=== PATIENT | female | born 1965 | race Caucasian/White ===

== ENCOUNTER 2016-07-13 19:18 | Emergency (ER) | payer BC ==
[2016-07-13 20:12] VITALS: BP 151/91
[2016-07-13 20:31] LABS: Urine Appearance Slightly Cloudy; Urine Bilirubin Negative (NEGATIVE); Urine Blood 50 /ul (NEGATIVE); Urine Color Yellow; Urine Ketone Negative (NEGATIVE); Urine Protein Negative (NEGATIVE); Urine Specific Gravity 1.005 SP.GR. (1.005-1.010)
[2016-07-13 20:32] LABS: Urine Bacteria 1+; Urine Nitrite Negative (NEGATIVE); Urine Urobilinogen Normal (NORMAL)
--- OUTSIDE RECORDS SUMMARY | 2016-07-13 20:44 | XMS REPORT | Continuity of Care Document ---
:1965 Author Organization [facility] ([facility]) Address [address] [place] [address] Phone [phone] Care Team Providers Name Role Phone Kait Sandhu Primary Care Provider [phone] Source Comments This disclosure is being made pursuant to the Care Everywhere program, applicable federal and state laws, and may not contain all informaitonavailable regarding this patient.[facility] ([facility]) Active Allergies and Adverse Reactions Allergen Noted Date Severity Reactions Comments Penicillins 09/12/2014 Rash Current Medications Prescription Sig. Disp. Refills Start Date End Date Status CALCIUM CARBONATE/VITAMIN Take by mouth Active D3 (VITAMIN D-3 PO) daily aspirin 81 mg chewable Take 2 tablets 28 tablet 0 12/19/2014 Active tablet (162 mg total) by mouth daily metFORMIN 500 mg tablet Take 1,000 mg Active by mouth 2 times daily. biotin (MERIBIN) 5 mg Take 5 mg by Active capsule mouth daily atorvastatin 20 mg tablet 20 mg daily. 06/06/2015 Active rOPINIRole 0.5 mg tablet 0.5 mg daily. 06/14/2015 Active lisinopril 40 mg tablet 40 mg daily. 04/22/2015 Active hydrochlorothiazide 12.5 12.5 mg daily. 04/22/2015 Active mg tablet amLODIPine 5 mg tablet Take 5 mg by Active mouth daily. cetirizine 10 mg tablet Take 10 mg by Active mouth daily. DULoxetine 30 mg XR Take 30 mg by Active capsule mouth daily. sennosides 8.6 mg tablet Take 1 tablet Active by mouth 2 times daily. Active Problems Patient Care Coordination Note GOALS OF CARE AND TREATMENT PREFERENCES Patients Communication Style/Preference per patient and per family: open/ direct/straightforward Diagnosis: Septic shock secondary to unknown cause Prognosis: Poor Goal(s) of Care: determine what is wrong, cure Is the patient an inpatient? Yes. How did the team arrive at the current code status? Family discussion Code status is: Full code Additional remarks: None. Patient able to make own decisions?: No, in the setting of encephalopathy that may be reversible Decision-maker: Next of kin: Children Patient's Goals of Care and communication style preference were communicated to attending staff. 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 Anakinra 200 mg po BID 09/24/14 - . Anakinra 100 BID on 10/04-09/26/14. Anakinra switched to 100 mg once daily on 10/07/14 Dexamethasone 10 mg/m2 (20 mg IV daily): 09/14/14 - 10/05/14. switched to oral prednisone 60 mg taper starting 10/05/14 (as of 12/19/14, is off dexamethasone ) Tocilizumab 8 mg/kg iv x1 (09/28/14) Hyponatremia 10/04/2014 Stroke 09/22/2014 Essential hypertension 09/21/2014 Severe protein-calorie malnutrition 09/21/2014 Diabetes mellitus, type 2 09/18/2014 Hypertriglyceridemia 09/18/2014 Acute hepatitis secondary to sepsis 09/13/2014 Resolved Problems Problem Noted Date Resolved Date Acute hypernatremia 09/24/2014 10/04/2014 Acute renal failure 09/21/2014 09/24/2014 Hemoptysis 09/18/2014 09/22/2014 ATN (acute tubular necrosis) 09/18/2014 10/04/2014 Coagulopathy 09/18/2014 09/21/2014 Seizure 09/18/2014 09/22/2014 Acute liver failure 09/18/2014 10/04/2014 Malnutrition of mild degree 09/18/2014 09/22/2014 Severe sepsis(995.92) 09/13/2014 10/04/2014 Septic shock(785.52) 09/13/2014 09/20/2014 Elevated partial thromboplastin time (PTT) 09/13/2014 09/21/2014 Acute kidney injury 09/13/2014 09/22/2014 Encephalopathy in sepsis 09/13/2014 10/04/2014 Lactic acidosis 09/13/2014 09/24/2014 Acute respiratory failure with hypoxia 09/13/2014 09/22/2014 Pancytopenia 09/13/2014 10/04/2014 Ovarian cyst, 12 X 12 cm 09/13/2014 01/17/2016 MODS (multiple organ dysfunction syndrome) 09/13/2014 10/04/2014 Cardiac dysrhythmia 09/13/2014 10/04/2014 Immunizations Name Dates Previously Given Next Due Influenza, unspecified 03/24/2015 Social History Tobacco Use Types Packs/Day Years Used Date Never Smoker Smokeless Tobacco: Never Used Tobacco Cessation:Counseling Given: Yes Comments: Alcohol Use Drinks/Week oz/Week Comments Yes 2 Cans of beer Last Filed Vital Signs Vital Sign Reading Time Taken Blood Pressure 126/82 01/16/2016 3:55 PM CDT Pulse 89 01/16/2016 3:55 PM CDT Temperature 37.5 C (99.5 F) 10/15/2015 12:05 PM CDT Respiratory Rate 18 10/15/2015 12:05 PM CDT Height 1.651 m (5' 5") 10/15/2015 12:05 PM CDT Weight 90.5 kg (199 lb 8.3 oz) 01/16/2016 3:55 PM CDT Body Mass Index 33.2 01/16/2016 3:55 PM CDT Oxygen Saturation 96% 10/15/2015 12:05 PM CDT Plan of Care Health Maintenance Due Date Last Done Comments Hepatitis B Vaccine (1 of 3 - 1965 Primary Series) Tdap Vaccine 10/04/1974 DIABETIC: Hemoglobin A1C 10/04/1981 DIABETIC: Microalbumin 10/04/1981 MMR Vaccine 10/04/1981 Td Vaccine 10/04/1981 Pneumococcal Vaccine (1 of 3 10/04/1982 - PCV13) Cervical Cancer Screening 10/04/1993 Mammogram 2003 DIABETIC: Foot Exam 09/18/2014 DIABETIC: Retinal Eye Exam 09/18/2014 DIABETIC: Cholesterol 09/23/2015 09/22/2014 Diabetic: Hdl 09/23/2015 09/22/2014 Diabetic: Ldl 09/23/2015 09/22/2014 DIABETIC: Triglycerides 09/23/2015 09/22/2014, Additional history exists 09/17/2014, 09/15/2014 Influenza Vaccine: Seasonal 11/19/2015 03/24/2015 (#1) Colonoscopy 08/27/2025 08/28/2015 HCV Screening Completed 09/14/2014, 09/12/2014 Results from Last 3 Months Not on file
[2016-07-13] MEDS ORDERED: SULFAMETHOXAZOLE/TRIMETHOPRIM 1 TAB TABLET PO ONE (21:04)
[2016-07-13] MEDS ORDERED: SULFAMETHOXAZOLE/TRIMETHOPRIM 1 TAB TABLET ONE (21:09)
--- NOTE | 2016-07-13 21:14 | ERNOTE ---
ER Female HPI Date of Service: 07/13/16 Stated Complaint: BLOOD IN URINE Presenting Symptoms: pelvic pain, dysuria Time Seen by Provider: 07/13/16 20:20 Source: patient Exam Limitations: no limitations Immunizations: IMMUNIZATION HX Immunizations Up to Date Yes History of Influenza Vaccine No Hx Pneumococcal Vaccination No Allergies/Adverse Reactions: Allergies penicillin G Allergy (Verified 01/23/16 17:58) Home Medications: HOME MEDICATIONS Aspirin [Aspirin Chewable] 81 mg PO DAILY 12/27/14 [Last Taken Unknown] Sennosides/Psyllium Husk [Senna Prompt Capsule] 1 each PO BID 12/27/14 [Last Taken Unknown] metFORMIN HCL [Glumetza] 500 mg PO DAILY 12/27/14 [Last Taken Unknown] Biotin 8 mg PO DAILY 05/07/15 [Last Taken Unknown] Cholecalciferol (Vitamin D3) [Vitamin D3] 2,000 unit PO DAILY 05/07/15 [Last Taken Unknown] Ibuprofen [Motrin] 600 mg PO Q6H PRN #60 tab 05/25/15 [Last Taken Unknown] Atorvastatin Calcium 20 mg PO DAILY 01/01/16 [Last Taken Unknown] Cetirizine HCl [Zyrtec] 10 mg PO HS 01/01/16 [Last Taken Unknown] Ondansetron [Zofran Odt] 8 mg PO Q8H PRN #12 tab 01/01/16 [Last Taken Unknown] amLODIPine BESYLATE [Norvasc] 5 mg PO DAILY 01/01/16 [Last Taken Unknown] rOPINIRole HCL [Requip] 1 mg PO HS 01/01/16 [Last Taken Unknown] Promethazine HCl [Phenergan] 25 mg PO QID PRN #30 tab 01/23/16 [Last Taken Unknown] Citalopram Hydrobromide [Citalopram HBr] 10 mg PO DAILY 07/13/16 [Last Taken Unknown] Sulfamethoxazole/Trimethoprim [Bactrim Ds] 1 tab PO BID #10 tab 07/13/16 [Last Taken Unknown] - History of Present Illness Narrative: This 50-year-old female presents to the emergency room with increased urinary frequency. Patient also complains of dysuria, bloody urine, and small blood clots in her urine. Patient states she feels like she has a UTI. Date (Duration): 07/13/16 Timing: Present: getting worse Quality: Present: mild, cramping Onset Location: Present: RLQ, LLQ, suprapubic, groin. Absent: right flank, left flank Radiation: Present: none Activities at Onset: Present: none Prior Abdominal Problems: Present: none Sexual Cut Off History: Present: not active Modifying Factors - (Improves): Present: urinating Modifying Factors - (Worsens): Present: palpation Associated Symptoms: Present: abdominal pain, dysuria, urinary frequency, polyuria. Absent: fever/chills, diaphoresis, nausea, vomiting, loss of bladder control, low back pain Review of Systems - Review of Systems Constitutional: Present: no symptoms reported EYE: Present: no symptoms reported ENT: Present: no symptoms reported Respiratory: Present: no symptoms reported Cardiology: Present: no symptoms reported Gastrointestinal/Abdominal: Present: no symptoms reported Genitourinary: Present: See HPI, frequency, pain, dysuria, hematuria Musculoskeletal: Present: no symptoms reported Skin: Present: no symptoms reported Neurological: Present: no symptoms reported Endocrine: Present: no symptoms reported Hematologic/Lymphatic: Present: no symptoms reported Psych: Present: no symptoms reported - Patient's Past Medical History Patient History - Medical: Diabetes Type 2, Depression, Other Patient History - Cardiac/Respiratory: CVA/Stroke Patient History - Cancer: No Hx of Cancer Patient History - Surgical Procedures: Appendectomy, Colonoscopy, D & C, Hysterectomy, T & A, Other Patient History - Other: None - Family History Mother Family History - Medical: Family History - Cardiac/Respiratory: CVA/Stroke Family History - Cancer: No pertinent family hx Father Family History - Medical: No pertinent hx Family History - Cardiac/Respiratory: Myocardial Infarction - Social History Living Situations: spouse Abuse History: No History of abuse Psych History: No pertinent hx Smoking Status: Never smoker Alcohol Use: occasionally Drug Use: none - Immunizations Immunizations Up to Date: Yes Hx Pneumococcal Vaccination: No History of Influenza Vaccine: No Physical Exam - Physical Exam General Appearance: Present: wd/wn, alert, no apparent distress Eye Exam: Normal inspection: bilateral Ears, Nose, Throat: Present: normal ENT inspection Neck: Present: normal inspection Respiratory: Present: no respiratory distress Cardiovascular/Chest: Present: regular rate, rhythm Gastrointestinal/Abdominal: Present: normal bowel sounds, tenderness Back Exam: Present: normal inspection, no CVA tenderness Extremity Exam: Present: normal inspection Neurological Exam: Present: alert, oriented, normal mood/affect Skin Exam: Present: normal color Lymphatic Exam: Present: no adenopathy ED Progress - Results and Orders Patient's Lab Results:: I have reviewed the patient's lab results. Results and Orders: positive for UTI - Vital Signs Patient's Vital Signs:: I have reviewed the patient's vital signs. Vital Signs: Vital Signs 07/13/16 20:05 Temperature 36.8 C Pulse Rate 77 Respiratory 14 Rate Blood Pressure 151/91 O2 Sat by Pulse 100 Oximetry - Progress/Reassessment Chief Complaint: Genitourinary Problem Progress:: Improved Departure Clinical Impression: UTI (urinary tract infection) Qualifiers: Urinary tract infection type: site unspecified Hematuria presence: with hematuria Qualified Code(s): N39.0 - Urinary tract infection, site not specified ; R31.9 - Hematuria, unspecified - Departure Disposition: Home Follow Up Needed Condition: Stable Instructions: Urine Culture and Sensitivity Testing, Urinary Tract Infection, Adult, [id number] Additional Instructions: Tonight you need to drink plenty of fluids and rest. Return to emergency room if pain does not improve by morning or if pain gets worse overnight. Start antibiotics tomorrow. Your first dose of antibiotic was given tonight in the emergency room. she may take [id number] pain medications as needed. Follow Up with your primary care physician in a few days. Referrals: Kait Sandhu MD [Primary Care Provider] - Prescriptions: Sulfamethoxazole/Trimethoprim [Bactrim Ds] 1 tab PO BID #10 tab
== END 2016-07-13 21:34 | disposition home or self-care (01) ==
LOC: ER 19:18
DX: N39.0 Urinary tract infection, site not specified (principal); R31.9 Hematuria, unspecified; E11.9 Type 2 diabetes mellitus without complications; Z86.73 Personal history of transient ischemic attack (TIA), and cerebral infarction without residual deficits

== ENCOUNTER 2017-01-13 11:34 | Emergency (ER) | payer BC ==
[2017-01-13 12:08] LABS: Hematocrit 40.9 % (37.0-47.0); Hemoglobin 14.3 gm/dL (12.5-16.0); Mean Cell Volume 87.2 fl (78-100); Mean Corpuscular Hemoglobin 30.5 pg (27-31); Mean Platelet Volume 9.5 fl (6.0-9.5); Neutrophil # 4.8 K/mm3 (1.3-6.0); Neutrophil % 67.9 % (42-75.0); Platelet Count 344 K/mm3 (150-450); Red Blood Count 4.69 M/mm3 (4.2-5.4); Red Cell Distribution Width 12.7 % (11.5-14.0); White Blood Count 7.1 K/mm3 (4.0-10.5)
[2017-01-13] MEDS ORDERED: NORMAL SALINE 1,000 ML IV ONE (12:10)
[2017-01-13 12:18] LABS: Albumin * 3.9 gm/dl (3.4-5.0); BUN/Creatinine Ratio 18.2 (9.0-21.6); Bilirubin, Total 0.3 mg/dL (0.0-1.1); Ca. Corrected For Albumin 9.3 mg/dL (8.4-10.2); Calcium * 9.5 mg/dL (7.9-10.9); Carbon Dioxide 29.9 mmol/L (24-32.6); Potassium 3.9 mmol/L (3.4-4.6); Total Protein 7.4 gm/dL (6.2-8.2)
[2017-01-13 12:26] LABS: Urine Bilirubin Negative (NEGATIVE); Urine Blood Negative /ul (NEGATIVE); Urine Ketone Negative (NEGATIVE); Urine Nitrite Negative (NEGATIVE); Urine Protein Negative (NEGATIVE); Urine Specific Gravity 1.025 SP.GR. (1.005-1.010); Urine Urobilinogen Normal (NORMAL); Urine pH 5.5 pH (5.0-7.0)
[2017-01-13 12:39] LABS: Urine Appearance Clear; Urine Color Yellow; Urine RBC None Seen /hpf (0-5); Urine WBC None Seen /hpf (0-5)
[2017-01-13 12:40] LABS: Urine Bacteria 1+
[2017-01-13 14:25] VITALS: BP 120/84
--- NOTE | 2017-01-13 14:32 | ERNOTE ---
Dizziness ER Record Date of Service: 01/13/17 Presenting Symptoms: dizziness, other - cough Time Seen by Provider: 01/13/17 11:45 Source: patient Exam Limitations: no limitations Immunizations: IMMUNIZATION HX Immunizations Up to Date Yes History of Influenza Vaccine No Hx Pneumococcal Vaccination No Allergies/Adverse Reactions: Allergies Allergy/AdvReac Type Severity Reaction Status Date / Time penicillin G Allergy Verified 01/13/17 11:42 Home Medications: HOME MEDICATIONS Aspirin [Aspirin Chewable] 81 mg PO DAILY 12/27/14 [Last Taken Unknown] Sennosides/Psyllium Husk [Senna Prompt Capsule] 1 each PO BID 12/27/14 [Last Taken Unknown] metFORMIN HCL [Glumetza] 500 mg PO DAILY 12/27/14 [Last Taken Unknown] Biotin 8 mg PO DAILY 05/07/15 [Last Taken Unknown] Cholecalciferol (Vitamin D3) [Vitamin D3] 2,000 unit PO DAILY 05/07/15 [Last Taken Unknown] Atorvastatin Calcium 20 mg PO DAILY 01/01/16 [Last Taken Unknown] Cetirizine HCl [Zyrtec] 10 mg PO HS 01/01/16 [Last Taken Unknown] rOPINIRole HCL [Requip] 1 mg PO HS 01/01/16 [Last Taken Unknown] Citalopram Hydrobromide [Citalopram HBr] 10 mg PO DAILY 07/13/16 [Last Taken Unknown] Albuterol Sulfate [Proair Hfa] 2 puff IH Q4H PRN #1 inhaler 01/13/17 [Last Taken Unknown] Chlorthalidone [Hygroton] 12.5 mg PO DAILY 01/13/17 [Last Taken Unknown] Doxycycline Monohydrate [Monodox] 100 mg PO BID #20 cap 01/13/17 [Last Taken Unknown] Lisinopril [Zestril] 30 mg PO DAILY 01/13/17 [Last Taken Unknown] Spironolactone [Aldactone] 12.5 mg PO DAILY 01/13/17 [Last Taken Unknown] - History of Present Illness Narrative: Patient presents to the ED from Dr Sandhu's office. She relates she has developed URI Sx over the last several days and this has progressed to cough. no fever. She relates she is very dizzy with standing. Dr Sandhu saw her and sent her to the ED for IV fluids. She denies CP or SOB. Nausea. No abdominal pain. She relates she has had this before in the past with dehydration. She feels lightheaded and dizzy with standing. No syncope. No focal N/T/W. Has not taken any medications for this. Timing and Duration: gradual onset Associated Symptoms: Absent: hearing loss, headache, weakness, numbness Sense of movement: Absent: spinning Usually:: Present: walks w/o assistance Modifying Factors - (Improves): Reports: other - rest Modifying Factors - (Worsens): Reports: standing position Prior Treament: Reports: recently seen Review of Systems - Review of Systems Constitutional: Absent: fever ENT: Present: nose congestion Respiratory: Present: cough Cardiology: Absent: chest pain Gastrointestinal/Abdominal: Absent: abdominal pain Genitourinary: Absent: dysuria Neurological: Absent: weakness - Patient's Past Medical History Patient History - Medical: Diabetes Type 2, Depression, Other Patient History - Cardiac/Respiratory: CVA/Stroke Patient History - Cancer: No Hx of Cancer Patient History - Surgical Procedures: Appendectomy, Colonoscopy, D & C, Hysterectomy, T & A, Other Patient History - Other: None LMP (females 10-50): Menopausal - Family History Mother Family History - Medical: Family History - Cardiac/Respiratory: CVA/Stroke Family History - Cancer: No pertinent family hx Father Family History - Medical: No pertinent hx Family History - Cardiac/Respiratory: Myocardial Infarction - Social History Living Situations: home Abuse History: No History of abuse Psych History: No pertinent hx Smoking Status: Never smoker Alcohol Use: occasionally Drug Use: none - Immunizations Immunizations Up to Date: Yes Hx Pneumococcal Vaccination: No History of Influenza Vaccine: No Physical Exam - Physical Exam General Appearance: Present: alert, no apparent distress, other - frequent cough. No distress. Speaks in full sentences Head Exam: Present: normal inspection, no evidence of injury Eye Exam: Normal inspection: bilateral, PERRL: bilateral Ears, Nose, Throat: Present: normal ENT inspection, nasal congestion. Absent: pharyngeal erythema, dry mucous membranes Neck: Present: normal inspection Respiratory: Present: no respiratory distress, normal breath sounds, no accessory muscle use, lungs clear Cardiovascular/Chest: Present: regular rate, rhythm, normal peripheral pulses Gastrointestinal/Abdominal: Present: normal bowel sounds, nontender, soft. Absent: tenderness Back Exam: Absent: CVA tenderness (R), CVA tenderness (L) Extremity Exam: Present: normal inspection Neurological Exam: Present: alert, normal mood/affect, no motor/sensory deficits , departure clerk II-XII nml as tested. Absent: motor weakness Skin Exam: Present: normal color, warm/dry ED Progress - Results and Orders Patient's Lab Results:: I have reviewed the patient's lab results. - Vital Signs Patient's Vital Signs:: I have reviewed the patient's vital signs. Vital Signs: Vital Signs 01/13/17 01/13/17 01/13/17 11:38 11:52 11:57 Temperature 36.4 C L Pulse Rate 81 87 91 Respiratory 16 16 Rate Blood Pressure 110/60 139/88 O2 Sat by Pulse 100 99 Oximetry 01/13/17 01/13/17 01/13/17 12:19 12:40 12:57 Temperature Pulse Rate 75 85 75 Respiratory 12 12 12 Rate Blood Pressure 124/81 105/70 119/78 O2 Sat by Pulse 97 98 99 Oximetry 01/13/17 01/13/17 01/13/17 13:19 13:36 14:05 Temperature Pulse Rate 73 75 78 Respiratory 12 12 12 Rate Blood Pressure 109/73 116/70 118/72 O2 Sat by Pulse 98 98 98 Oximetry - X-Ray X-Ray #1 X-Ray: chest Interpretation: Interp. by me X-ray Comments: I reviewed CXR radiology report - Progress/Reassessment Chief Complaint: Dizziness Progress Note-Subjective: 01/13/17 14:43 She felt much improved after IV fluids. Dr Sanhdu reviewed her labs and recommended antibiotics and outpatient management. Pt agreeable. Possible pneumonia. No other clear acute life threat. I discussed warning signs and reasons to return as well as the need for close f/u. 01/13/17 14:48 No other acute life threats identified. Departure Clinical Impression: Dizziness, Pneumonia - Departure Disposition: Home self-care Condition: Stable Instructions: Cough, Adult, [id number] Additional Instructions: Rest. Fluids. Antibiotics. Inhaler for cough. Follow-up with Dr Sandhu within 3 days for a re-check. Return for fever, trouble breathing or if your condition worsens or changes in any way. Referrals: Kait Sandhu MD [Primary Care Provider] - Prescriptions: Albuterol Sulfate [Proair Hfa] 2 puff IH Q4H PRN #1 inhaler PRN Reason: Cough Doxycycline Monohydrate [Monodox] 100 mg PO BID #20 cap
== END 2017-01-13 14:52 | disposition home or self-care (01) ==
LOC: ER 11:34
DX: J18.9 Pneumonia, unspecified organism (principal); R42 Dizziness and giddiness; E11.9 Type 2 diabetes mellitus without complications; I63.9 Cerebral infarction, unspecified

== ENCOUNTER 2017-02-16 08:47 | Emergency (ER) | payer BC ==
--- NOTE | 2017-02-16 09:44 | ERNOTE ---
Upper Extremity HPI - General Extremities Pain Location: hand: left Time Seen by Provider: 02/16/17 09:38 Source: patient Exam Limitations: no limitations - Immun/Allergies/Home Medications Immunizations: IMMUNIZATION HX Immunizations Up to Date Yes History of Influenza Vaccine No Hx Pneumococcal Vaccination No Allergies/Adverse Reactions: Allergies Allergy/AdvReac Type Severity Reaction Status Date / Time penicillin G Allergy Verified 02/16/17 08:55 Home Medications: HOME MEDICATIONS Aspirin [Aspirin Chewable] 81 mg PO DAILY 12/27/14 [Last Taken Unknown] Sennosides/Psyllium Husk [Senna Prompt Capsule] 1 each PO BID 12/27/14 [Last Taken Unknown] metFORMIN HCL [Glumetza] 500 mg PO DAILY 12/27/14 [Last Taken Unknown] Biotin 8 mg PO DAILY 05/07/15 [Last Taken Unknown] Cholecalciferol (Vitamin D3) [Vitamin D3] 2,000 unit PO DAILY 05/07/15 [Last Taken Unknown] Atorvastatin Calcium 20 mg PO DAILY 01/01/16 [Last Taken Unknown] Cetirizine HCl [Zyrtec] 10 mg PO HS 01/01/16 [Last Taken Unknown] rOPINIRole HCL [Requip] 1 mg PO HS 01/01/16 [Last Taken Unknown] Citalopram Hydrobromide [Citalopram HBr] 10 mg PO DAILY 07/13/16 [Last Taken Unknown] Albuterol Sulfate [Proair Hfa] 2 puff IH Q4H PRN #1 inhaler 01/13/17 [Last Taken Unknown] Chlorthalidone [Hygroton] 12.5 mg PO DAILY 01/13/17 [Last Taken Unknown] Lisinopril [Zestril] 30 mg PO DAILY 01/13/17 [Last Taken Unknown] Spironolactone [Aldactone] 12.5 mg PO DAILY 01/13/17 [Last Taken Unknown] - History of Present Illness Narrative: Yesterday patient tripped, fell and dorsiflexed the fingers on her left hand. She denies any other injuries, wants to make sure it is not broken Date (Duration): 02/15/17 Time (Timing): 08:00 Occurred: yesterday Location of Incident: home Method of Injury: Reports: fell Reason for Fall: Reports: lost balance Loss of Consciousness: Reports: no loss of consciousness Modifying Factors - (Improves): Reports: immobilization Modifying Factors - (Worsens): Reports: movement Associated Symptoms: Denies: tingling, loss of power (rt arm) Other Injuries: Reports: none Review of Systems - Review of Systems Constitutional: Absent: recent illness, fever ENT: Absent: sore throat Respiratory: Absent: shortness of breath Cardiology: Absent: chest pain Gastrointestinal/Abdominal: Absent: nausea, vomiting, abdominal pain Genitourinary: Present: no symptoms reported Musculoskeletal: Present: See HPI Skin: Absent: rash Neurological: Absent: weakness, numbness - Patient's Past Medical History Patient History - Medical: Diabetes Type 2, Depression, Other Patient History - Cardiac/Respiratory: CVA/Stroke Patient History - Cancer: No Hx of Cancer Patient History - Surgical Procedures: Appendectomy, Colonoscopy, D & C, Hysterectomy, T & A, Other Patient History - Other: None - Family History Mother Family History - Medical: Family History - Cardiac/Respiratory: CVA/Stroke Family History - Cancer: No pertinent family hx Father Family History - Medical: No pertinent hx Family History - Cardiac/Respiratory: Myocardial Infarction - Social History Living Situations: home Abuse History: No History of abuse Psych History: No pertinent hx Alcohol Use: none Drug Use: none - Immunizations Immunizations Up to Date: Yes Hx Pneumococcal Vaccination: No History of Influenza Vaccine: No Physical Exam - Physical Exam General Appearance: Present: wd/wn, alert, no apparent distress Respiratory: Present: no respiratory distress, normal breath sounds, lungs clear Cardiovascular/Chest: Present: regular rate, rhythm, no murmur Extremity Exam: Present: normal except - - swelling and tenderness over dorsum of hand just proximal to knuckles, no deformity, no echymosis, . Absent: bony tenderness Neurological Exam: Present: alert, oriented, normal mood/affect, no motor/ sensory deficits Skin Exam: Present: normal color, warm/dry, other - intact ED Progress - Vital Signs Patient's Vital Signs:: I have reviewed the patient's vital signs. Vital Signs: Vital Signs 02/16/17 08:51 Temperature 36.2 C L Pulse Rate 71 Respiratory 12 Rate Blood Pressure 139/90 O2 Sat by Pulse 98 Oximetry - X-Ray X-Ray #1 X-Ray: hand - soft tissue swelling, no bony injury Interpretation: Reviewed by me - Progress/Reassessment Chief Complaint: Hand Injury/Pain Departure Clinical Impression: Contusion of left hand Qualifiers: Encounter type: initial encounter Qualified Code(s): S60.222A - Contusion of left hand, initial encounter - Departure Disposition: Home self-care Condition: Good Instructions: Hand Contusion, [id number] Additional Instructions: use ibuprofen as needed, use hand as tolerated Referrals: Kait Sandhu MD [Primary Care Provider] -
[2017-02-16 09:55] VITALS: BP 139/89
== END 2017-02-16 09:56 | disposition home or self-care (01) ==
LOC: ER 08:47
DX: S60.222A Contusion of left hand, initial encounter (principal); W19.XXXA Unspecified fall, initial encounter; Y93.89 Activity, other specified; Y92.009 Unspecified place in unspecified non-institutional (private) residence as the place of occurrence of the external cause; Y99.8 Other external cause status; E11.9 Type 2 diabetes mellitus without complications; F32.9 Major depressive disorder, single episode, unspecified